=== PATIENT | male | born 1945 | race Caucasian/White ===

== ENCOUNTER 2017-01-12 00:45 | Inpatient (IN) | payer OTHER, MEDICAID ==
[~2017-01-12] VITALS: Ht 165.1 cm; Wt 83.0 kg
[2017-01-12] VITALS (7 sets, daily range): BP systolic 120–155
[2017-01-12] MEDS ORDERED: HYDROmorphone 1 MG INJ. 1 MG/ML AMPUL IVP ONE (01:30)
[2017-01-12] MEDS ORDERED: NACL 0.9% 1,000 ML IV ONE ×2 (01:30→09:45)
[2017-01-12] MEDS ORDERED: ONDANSETRON HCL 4 MG/2 ML VIAL IVP ONE ×2 (01:45→02:15)
[2017-01-12 01:53] LABS: BASOPHILS # (AUTO) 0.1 K/uL (0.0-0.2); BASOPHILS % (AUTO) 0.6 % (0.0-2.0); EOSINOPHILS # (AUTO) 0.1 K/uL (0.0-0.4); EOSINOPHILS % (AUTO) 0.9 % (0.0-4.0); HEMOGLOBIN 13.6 g/dL (14.0-18.0); LYMPHOCYTES # (AUTO) 1.6 K/uL (1.0-5.5); LYMPHOCYTES % (AUTO) 13.3 % (20.5-51.5); MEAN CORPUSCULAR HEMOGLOBIN 31 pg (27-31); MEAN CORPUSCULAR HGB CONC 35 % (32-36); MEAN CORPUSCULAR VOLUME 88 fL (79.0-98.0); MONOCYTES # (AUTO) 0.8 K/uL (0.0-1.0); MONOCYTES % (AUTO) 6.3 % (1.7-9.3); NEUTROPHILS # (AUTO) 9.5 K/uL (1.8-7.7); NEUTROPHILS % (AUTO) 78.9 % (40.0-70.0); PLATELET COUNT (AUTO) 196 K/uL (130-430); RED BLOOD CELL COUNT(AUTO) 4.41 MIL/uL (4.2-6.2); RED CELL DISTRIBUTION WIDTH 11.9 % (9.0-15.0); WHITE BLOOD COUNT (AUTO) 12.1 K/uL (4.8-10.8)
[2017-01-12] MEDS ORDERED: ONDANSETRON HCL 4 MG/2 ML VIAL ONE (02:03)
[2017-01-12 02:09] LABS: ANION GAP 10 (5-15); CALCIUM 9.2 mg/dL (8.4-11.0); CHLORIDE 104 mmol/L (98-107); GLUCOSE 138 mg/dL (70-99); POTASSIUM 3.6 mmol/L (3.5-5.1); SODIUM SERUM 139 mmol/L (136-145); UREA NITROGEN, BLOOD 19 mg/dL (8-21)
[2017-01-12 02:14] LABS: ALANINE AMINOTRANSFERASE 45 U/L (12-78); ALBUMIN 4.1 g/dL (3.4-4.8); ASPARTATE AMINOTRANSFERASE 31 U/L (10-37); LACTATE DEHYDROGENASE 211 U/L (85-227); TOTAL BILIRUBIN 0.5 mg/dL (0.0-1.0)
[2017-01-12] MEDS ORDERED: PRAV40TA PO (02:48)
[2017-01-12] MEDS ORDERED: NOR10 PO (02:48)
[2017-01-12] MEDS ORDERED: HYDR25TA4 PO (02:48)
[2017-01-12] MEDS ORDERED: FENO48TA2 PO (02:48)
[2017-01-12 03:25] LABS: LIPASE 12443 U/L (73-393)
[2017-01-12] MEDS ORDERED: FLU VACC QS 2017-18(36MOS+)/PF 0.5 ML/SYR SYRINGE I.M. PRN (03:45)
[2017-01-12] MEDS: NACL 0.9% 1,000 ML IV SCH ×3 (04:26→23:52)
[2017-01-12] MEDS ORDERED: ONDANSETRON HCL 4 MG/2 ML VIAL IVP PRN (05:30)
[2017-01-12 07:00] LABS: BILIRUBIN,URINE NEGATIVE (NEGATIVE); BLOOD, URINE NEGATIVE (NEGATIVE); CLARITY/URINE SL HAZY (CLEAR); COLOR,URINE YELLOW (YELLOW); GLUCOSE,URINE NEGATIVE (NEGATIVE); KETONES,URINE NEGATIVE (NEGATIVE); LEUKOCYTE ESTERASE ,URINE NEGATIVE (NEGATIVE); NITRITE, URINE NEGATIVE (NEGATIVE); PROTEIN URINE NEGATIVE (NEGATIVE); UROBILINOGEN,URINE 0.2 (0.2-1.0)
[2017-01-12] MEDS: HYDROmorphone 1 MG INJ. 1 MG/ML AMPUL IVP PRN ×2 (07:52→15:22)
[2017-01-12] MEDS ORDERED: HYDROmorphone 1 MG INJ. 1 MG/ML AMPUL IVP PRN (09:45)
[2017-01-12] MEDS ORDERED: cloNIDine HCL 0.1 MG TABLET PO PRN (09:45)
[2017-01-12] MEDS ORDERED: HYDROmorphone 2 MG/ML VIAL IVP PRN (09:45)
[2017-01-12] MEDS ORDERED: ACETAMINOPHEN 325 MG TABLET PO PRN (09:45)
[2017-01-13 00:02] VITALS: BP_SYST 134
[2017-01-13 04:38] VITALS: BP_SYST 132
[2017-01-13] MEDS: NACL 0.9% 1,000 ML IV SCH ×4 (06:16→16:45)
[2017-01-13 07:16] LABS: BASOPHILS % (AUTO) 0.2 % (0.0-2.0); EOSINOPHILS % (AUTO) 0.4 % (0.0-4.0); HEMATOCRIT 35.2 % (36-54); HEMOGLOBIN 12.3 g/dL (14.0-18.0); LYMPHOCYTES # (AUTO) 1.4 K/uL (1.0-5.5); LYMPHOCYTES % (AUTO) 13.8 % (20.5-51.5); MEAN CORPUSCULAR HEMOGLOBIN 31 pg (27-31); MEAN CORPUSCULAR HGB CONC 35 % (32-36); MEAN CORPUSCULAR VOLUME 89 fL (79.0-98.0); MONOCYTES # (AUTO) 0.8 K/uL (0.0-1.0); MONOCYTES % (AUTO) 7.7 % (1.7-9.3); NEUTROPHILS # (AUTO) 8.1 K/uL (1.8-7.7); NEUTROPHILS % (AUTO) 77.9 % (40.0-70.0); PLATELET COUNT (AUTO) 169 K/uL (130-430); RED BLOOD CELL COUNT(AUTO) 3.94 MIL/uL (4.2-6.2); RED CELL DISTRIBUTION WIDTH 12.1 % (9.0-15.0); WHITE BLOOD COUNT (AUTO) 10.3 K/uL (4.8-10.8)
[2017-01-13 07:40] LABS: ALANINE AMINOTRANSFERASE 30 U/L (12-78); ALBUMIN 3.2 g/dL (3.4-4.8); ANION GAP 8 (5-15); ASPARTATE AMINOTRANSFERASE 18 U/L (10-37); CALCIUM 8.4 mg/dL (8.4-11.0); CHLORIDE 106 mmol/L (98-107); CREATININE 0.84 mg/dL (0.55-1.30); GLUCOSE 88 mg/dL (70-99); LIPASE 1418 U/L (73-393); POTASSIUM 3.1 mmol/L (3.5-5.1); SODIUM SERUM 139 mmol/L (136-145); TOTAL BILIRUBIN 0.8 mg/dL (0.0-1.0); UREA NITROGEN, BLOOD 9 mg/dL (8-21)
[2017-01-13 08:13] VITALS: BP_SYST 142
[2017-01-13] MEDS ORDERED: POTASSIUM CHLORIDE 40 MEQ in NS 250 ML IV SCH (08:48)
[2017-01-13] MEDS ORDERED: NACL 0.9% 1,000 ML IV ONE (09:00)
[2017-01-13 09:06] LABS: CHOLESTEROL 115 mg/dL (<200); HDL CHOLESTEROL 50 mg/dL (>45); LDL CHOLESTEROL 62 mg/dL (<100); TRIGLYCERIDES 74 mg/dL (30-150)
[2017-01-13] MEDS: amLODIPine BESYLATE 10 MG TABLET PO SCH (09:26)
[2017-01-13 11:47] VITALS: BP_SYST 144
[2017-01-13 17:07] VITALS: BP_SYST 137
[2017-01-13 20:10] VITALS: BP_SYST 155
[2017-01-13] MEDS: HYDROmorphone 1 MG INJ. 1 MG/ML AMPUL IVP PRN (21:04)
[2017-01-14] MEDS: NACL 0.9% 1,000 ML IV SCH ×5 (00:33→19:13)
[2017-01-14 00:58] VITALS: BP_SYST 128
[2017-01-14 04:57] VITALS: BP_SYST 135
[2017-01-14 07:24] LABS: ALANINE AMINOTRANSFERASE 33 U/L (12-78); ALBUMIN 2.9 g/dL (3.4-4.8); AMYLASE 95 U/L (0-100); ANION GAP 8 (5-15); ASPARTATE AMINOTRANSFERASE 24 U/L (10-37); CALCIUM 8.6 mg/dL (8.4-11.0); CHLORIDE 109 mmol/L (98-107); CREATININE 0.74 mg/dL (0.55-1.30); GLUCOSE 105 mg/dL (70-99); LIPASE 283 U/L (73-393); POTASSIUM 3.2 mmol/L (3.5-5.1); SODIUM SERUM 140 mmol/L (136-145); TOTAL BILIRUBIN 1.3 mg/dL (0.0-1.0); UREA NITROGEN, BLOOD 6 mg/dL (8-21)
[2017-01-14 07:26] LABS: BASOPHILS % (AUTO) 0.2 % (0.0-2.0); EOSINOPHILS # (AUTO) 0.1 K/uL (0.0-0.4); EOSINOPHILS % (AUTO) 1.5 % (0.0-4.0); HEMATOCRIT 33.2 % (36-54); HEMOGLOBIN 11.5 g/dL (14.0-18.0); LYMPHOCYTES # (AUTO) 1.3 K/uL (1.0-5.5); LYMPHOCYTES % (AUTO) 15.4 % (20.5-51.5); MEAN CORPUSCULAR HEMOGLOBIN 31 pg (27-31); MEAN CORPUSCULAR HGB CONC 35 % (32-36); MEAN CORPUSCULAR VOLUME 90 fL (79.0-98.0); MONOCYTES # (AUTO) 0.7 K/uL (0.0-1.0); MONOCYTES % (AUTO) 8.7 % (1.7-9.3); NEUTROPHILS # (AUTO) 6.4 K/uL (1.8-7.7); NEUTROPHILS % (AUTO) 74.2 % (40.0-70.0); PLATELET COUNT (AUTO) 154 K/uL (130-430); RED BLOOD CELL COUNT(AUTO) 3.71 MIL/uL (4.2-6.2); RED CELL DISTRIBUTION WIDTH 11.7 % (9.0-15.0); WHITE BLOOD COUNT (AUTO) 8.5 K/uL (4.8-10.8)
[2017-01-14 08:00] VITALS: BP_SYST 141
[2017-01-14] MEDS: POTASSIUM CHLORIDE 20 MEQ TAB.PRT.SR PO SCH ×2 (09:05→14:21)
[2017-01-14] MEDS: amLODIPine BESYLATE 10 MG TABLET PO SCH (09:06)
[2017-01-14 12:27] VITALS: BP_SYST 120
[2017-01-14 17:00] VITALS: BP_SYST 116
[2017-01-14 20:00] VITALS: BP_SYST 148
[2017-01-15] MEDS: NACL 0.9% 1,000 ML IV SCH ×2 (00:15→08:22)
[2017-01-15 00:24] VITALS: BP_SYST 154
[2017-01-15] MEDS: HYDROmorphone 1 MG INJ. 1 MG/ML AMPUL IVP PRN (02:37)
[2017-01-15 04:05] VITALS: BP_SYST 109
[2017-01-15 08:09] VITALS: BP_SYST 140
[2017-01-15] MEDS: amLODIPine BESYLATE 10 MG TABLET PO SCH (08:16)
[2017-01-15 10:39] LABS: ALBUMIN 3.3 g/dL (3.4-4.8); CREATININE 0.8 mg/dL (0.55-1.30); POTASSIUM 3.5 mmol/L (3.5-5.1); TOTAL BILIRUBIN 1.3 mg/dL (0.0-1.0)
[2017-01-15 12:13] VITALS: BP_SYST 125
[2017-01-15 15:04] VITALS: BP_SYST 125
[2017-01-15 15:26] VITALS: BP_SYST 126
== END 2017-01-15 15:15 | disposition home or self-care (01) | DRG 439 ==
LOC: SED 00:45 → STU 03:01 → SMU 11:15
PROVIDERS: ADMIT Internal Medicine Hospice and Palliative Medicine; ATTEND Internal Medicine Hospice and Palliative Medicine
DX: K85.90 Acute pancreatitis without necrosis or infection, unspecified (principal); K86.2 Cyst of pancreas; I10 Essential (primary) hypertension; K59.00 Constipation, unspecified; E78.5 Hyperlipidemia, unspecified; Z79.899 Other long term (current) drug therapy
CPT/HCPCS: 36415; 71010; 74181; 76700-TC; 80053; 80061; 81003; 82150-TC; 83615-TC; 83690-TC; 83880; 84484; 85025; 93005; 96361; 96374; 96375; 99285; J1170; J2405; J3480; J7030; J7050; Q2037

== ENCOUNTER 2018-04-10 08:00 | Inpatient (IN) | payer OTHER, MEDICAID ==
[~2018-04-10] VITALS: Ht 165.1 cm; Wt 78.5 kg
[~2018-04-10 08:00] MED LIST: NOR10 PO; PRAV40TA PO; TRI48 PO
[2018-04-10 08:05] VITALS: BP_SYST 130
[2018-04-10] MEDS ORDERED: NACL 0.9% 1,000 ML IV ONE (08:10)
[2018-04-10] MEDS ORDERED: MAG HYDROX/AL HYDROX/SIMETH 30 ML, BELLADONNA ALKALOIDS/PHENOBARB 10 ML, LIDOCAINE VISC... PO ONE ×3 (08:15)
[2018-04-10] MEDS ORDERED: ONDANSETRON HCL 4 MG/2 ML VIAL IVP ONE (08:15)
[2018-04-10 08:37] LABS: BASOPHILS % (AUTO) 0.4 % (0.0-2.0); EOSINOPHILS # (AUTO) 0.1 K/uL (0.0-0.4); HEMATOCRIT 45.5 % (36-54); HEMOGLOBIN 15.9 g/dL (14.0-18.0); LYMPHOCYTES # (AUTO) 1.8 K/uL (1.0-5.5); LYMPHOCYTES % (AUTO) 17.1 % (20.5-51.5); MEAN CORPUSCULAR HEMOGLOBIN 31 pg (27-31); MEAN CORPUSCULAR HGB CONC 35 % (32-36); MEAN CORPUSCULAR VOLUME 88 fL (79.0-98.0); MONOCYTES # (AUTO) 0.7 K/uL (0.0-1.0); MONOCYTES % (AUTO) 6.5 % (1.7-9.3); NEUTROPHILS # (AUTO) 7.7 K/uL (1.8-7.7); PLATELET COUNT (AUTO) 214 K/uL (130-430); RED BLOOD CELL COUNT(AUTO) 5.16 MIL/uL (4.2-6.2); WHITE BLOOD COUNT (AUTO) 10.3 K/uL (4.8-10.8)
[2018-04-10 08:45] LABS: BILIRUBIN,URINE 2+ (NEGATIVE); BLOOD, URINE NEGATIVE (NEGATIVE); CLARITY/URINE HAZY (CLEAR); COLOR,URINE AMBER (YELLOW); GLUCOSE,URINE NEGATIVE (NEGATIVE); KETONES,URINE 1+ (NEGATIVE); LEUKOCYTE ESTERASE ,URINE NEGATIVE (NEGATIVE); NITRITE, URINE NEGATIVE (NEGATIVE); PROTEIN URINE 1+ (NEGATIVE); UROBILINOGEN,URINE 0.2 (0.2-1.0)
[2018-04-10 08:46] LABS: ANION GAP 8 (5-15); CALCIUM 9.1 mg/dL (8.4-11.0); CHLORIDE 100 mmol/L (98-107); CREATININE 0.97 mg/dL (0.55-1.30); GLUCOSE 100 mg/dL (70-99); POTASSIUM 3.5 mmol/L (3.5-5.1); SODIUM SERUM 136 mmol/L (136-145); UREA NITROGEN, BLOOD 10 mg/dL (8-21)
[2018-04-10 08:52] LABS: INR 0.9 (0.80-1.20); PROTHROMBIN TIME 9.7 SECS (9.5-12.5)
[2018-04-10 08:53] LABS: ALANINE AMINOTRANSFERASE 37 U/L (12-78); AMYLASE 683 U/L (0-100); ASPARTATE AMINOTRANSFERASE 18 U/L (10-37); TOTAL BILIRUBIN 1.4 mg/dL (0.0-1.0)
[2018-04-10 08:55] LABS: RBC,URINE 0-3 /HPF (0-3); WBC,URINE 0-3 /HPF (0-3)
[2018-04-10 08:56] LABS: BACTERIA,URINE FEW /HPF (None Seen); MUCUS,URINE 2+ /LPF (None Seen)
[2018-04-10 09:39] LABS: LIPASE 3325 U/L (73-393)
[2018-04-10] MEDS ORDERED: MORPHINE 4 MG/ML INJ. SYRINGE IVP ONE (09:45)
[2018-04-10 10:43] VITALS: BP_SYST 115
[2018-04-10] MEDS ORDERED: ONDANSETRON HCL 4 MG/2 ML VIAL IVP PRN (11:30)
[2018-04-10] MEDS ORDERED: MORPHINE 4 MG/ML INJ. SYRINGE IVP PRN (11:30)
[2018-04-10] MEDS: D5NS 1,000 ML IV SCH ×2 (12:38→18:54)
[2018-04-10 12:45] VITALS: BP_SYST 115
[2018-04-10 16:14] VITALS: BP_SYST 120
[2018-04-10] MEDS: MORPHINE 4 MG/ML INJ. SYRINGE IVP PRN (19:09)
[2018-04-10 19:30] VITALS: BP_SYST 123
[2018-04-11 00:24] VITALS: BP_SYST 129
[2018-04-11] MEDS: D5NS 1,000 ML IV SCH ×4 (01:23→20:52)
[2018-04-11 07:55] LABS: BASOPHILS # (AUTO) 0.1 K/uL (0.0-0.2); BASOPHILS % (AUTO) 0.9 % (0.0-2.0); EOSINOPHILS # (AUTO) 0.1 K/uL (0.0-0.4); EOSINOPHILS % (AUTO) 1.4 % (0.0-4.0); HEMATOCRIT 39.5 % (36-54); HEMOGLOBIN 13.1 g/dL (14.0-18.0); LYMPHOCYTES # (AUTO) 1.4 K/uL (1.0-5.5); LYMPHOCYTES % (AUTO) 20.4 % (20.5-51.5); MEAN CORPUSCULAR HEMOGLOBIN 30 pg (27-31); MEAN CORPUSCULAR HGB CONC 33 % (32-36); MEAN CORPUSCULAR VOLUME 89 fL (79.0-98.0); MONOCYTES # (AUTO) 0.7 K/uL (0.0-1.0); MONOCYTES % (AUTO) 9.2 % (1.7-9.3); NEUTROPHILS # (AUTO) 4.8 K/uL (1.8-7.7); NEUTROPHILS % (AUTO) 68.1 % (40.0-70.0); PLATELET COUNT (AUTO) 169 K/uL (130-430); RED BLOOD CELL COUNT(AUTO) 4.43 MIL/uL (4.2-6.2); RED CELL DISTRIBUTION WIDTH 11.9 % (9.0-15.0); WHITE BLOOD COUNT (AUTO) 7.1 K/uL (4.8-10.8)
[2018-04-11 08:00] VITALS: BP_SYST 126
[2018-04-11 08:18] LABS: ANION GAP 6 (5-15); CALCIUM 8.2 mg/dL (8.4-11.0); CHLORIDE 104 mmol/L (98-107); CREATININE 0.89 mg/dL (0.55-1.30); GLUCOSE 119 mg/dL (70-99); POTASSIUM 4.1 mmol/L (3.5-5.1); SODIUM SERUM 138 mmol/L (136-145); UREA NITROGEN, BLOOD 6 mg/dL (8-21)
[2018-04-11 08:22] LABS: ALANINE AMINOTRANSFERASE 24 U/L (12-78); ALBUMIN 3.1 g/dL (3.4-4.8); ASPARTATE AMINOTRANSFERASE 12 U/L (10-37); LIPASE 553 U/L (73-393); TOTAL BILIRUBIN 0.9 mg/dL (0.0-1.0); TRIGLYCERIDES 146 mg/dL (30-150)
[2018-04-11] MEDS ORDERED: PRAVASTATIN SODIUM 20 MG TABLET (PRAVACHOL) PO SCH (09:00)
[2018-04-11] MEDS: ATORVASTATIN 10 MG TABLET PO SCH (09:29)
[2018-04-11] MEDS: amLODIPine BESYLATE 10 MG TABLET PO SCH (09:30)
[2018-04-11] MEDS: FENOFIBRATE NANOCRYSTALLIZED 48 MG TABLET (TRICOR) PO SCH (09:31)
[2018-04-11 12:16] VITALS: BP_SYST 145
[2018-04-11 16:04] VITALS: BP_SYST 132
[2018-04-11 20:45] VITALS: BP_SYST 119
[2018-04-11] MEDS: MORPHINE 4 MG/ML INJ. SYRINGE IVP PRN (20:57)
[2018-04-11 23:26] VITALS: BP_SYST 122
[2018-04-12] MEDS: D5NS 1,000 ML IV SCH ×3 (04:08→18:07)
[2018-04-12 08:12] VITALS: BP_SYST 139
[2018-04-12] MEDS: ATORVASTATIN 10 MG TABLET PO SCH (09:18)
[2018-04-12] MEDS: FENOFIBRATE NANOCRYSTALLIZED 48 MG TABLET (TRICOR) PO SCH (09:18)
[2018-04-12] MEDS: amLODIPine BESYLATE 10 MG TABLET PO SCH (09:19)
[2018-04-12 12:00] VITALS: BP_SYST 137
[2018-04-12] MEDS ORDERED: MILK OF MAGNESIA 30 ML UDC PO ONE (13:45)
[2018-04-12 16:00] VITALS: BP_SYST 131
[2018-04-12 20:00] VITALS: BP_SYST 134
[2018-04-12 23:49] VITALS: BP_SYST 137
[2018-04-13] MEDS: D5NS 1,000 ML IV SCH ×2 (02:15→06:39)
[2018-04-13 08:00] VITALS: BP_SYST 138
[2018-04-13 08:19] LABS: BASOPHILS % (AUTO) 0.5 % (0.0-2.0); EOSINOPHILS # (AUTO) 0.1 K/uL (0.0-0.4); EOSINOPHILS % (AUTO) 2.4 % (0.0-4.0); HEMATOCRIT 45.4 % (36-54); HEMOGLOBIN 15.3 g/dL (14.0-18.0); LYMPHOCYTES # (AUTO) 0.8 K/uL (1.0-5.5); LYMPHOCYTES % (AUTO) 16.9 % (20.5-51.5); MEAN CORPUSCULAR HEMOGLOBIN 30 pg (27-31); MEAN CORPUSCULAR HGB CONC 34 % (32-36); MEAN CORPUSCULAR VOLUME 89 fL (79.0-98.0); MONOCYTES # (AUTO) 0.5 K/uL (0.0-1.0); MONOCYTES % (AUTO) 9.1 % (1.7-9.3); NEUTROPHILS # (AUTO) 3.6 K/uL (1.8-7.7); NEUTROPHILS % (AUTO) 71.1 % (40.0-70.0); PLATELET COUNT (AUTO) 189 K/uL (130-430); RED BLOOD CELL COUNT(AUTO) 5.12 MIL/uL (4.2-6.2); RED CELL DISTRIBUTION WIDTH 12.1 % (9.0-15.0)
[2018-04-13 08:36] LABS: ALBUMIN 3.6 g/dL (3.4-4.8); ASPARTATE AMINOTRANSFERASE 31 U/L (10-37); CALCIUM 8.9 mg/dL (8.4-11.0); CHLORIDE 105 mmol/L (98-107); CREATININE 0.85 mg/dL (0.55-1.30); GLUCOSE 173 mg/dL (70-99); LIPASE 258 U/L (73-393); POTASSIUM 4.1 mmol/L (3.5-5.1); SODIUM SERUM 140 mmol/L (136-145); UREA NITROGEN, BLOOD 4 mg/dL (8-21)
[2018-04-13 09:02] LABS: ANION GAP 9 (5-15); TOTAL BILIRUBIN 1.1 mg/dL (0.0-1.0)
[2018-04-13 09:22] LABS: ALANINE AMINOTRANSFERASE 50 U/L (12-78)
[2018-04-13] MEDS: amLODIPine BESYLATE 10 MG TABLET PO SCH (09:58)
[2018-04-13] MEDS: ATORVASTATIN 10 MG TABLET PO SCH (09:59)
[2018-04-13] MEDS: FENOFIBRATE NANOCRYSTALLIZED 48 MG TABLET (TRICOR) PO SCH (09:59)
[2018-04-13 11:30] VITALS: BP_SYST 117
[2018-04-13 12:54] VITALS: BP_SYST 138
== END 2018-04-13 13:40 | disposition home or self-care (01) | DRG 439 ==
LOC: SED 08:00 → SMU 09:56
PROVIDERS: ADMIT Internal Medicine Hospice and Palliative Medicine; ATTEND Internal Medicine Hospice and Palliative Medicine
DX: K85.90 Acute pancreatitis without necrosis or infection, unspecified (principal); F11.20 Opioid dependence, uncomplicated; E78.5 Hyperlipidemia, unspecified; I10 Essential (primary) hypertension; K76.0 Fatty (change of) liver, not elsewhere classified; E78.00 Pure hypercholesterolemia, unspecified; G89.29 Other chronic pain; M19.90 Unspecified osteoarthritis, unspecified site; K59.00 Constipation, unspecified; Z82.49 Family history of ischemic heart disease and other diseases of the circulatory system; Z91.018 Allergy to other foods
CPT/HCPCS: 36415; 71045; 76700-TC; 80053; 81000-TC; 82150-TC; 82550-TC; 83690-TC; 84478-TC; 84484; 85025; 85610-TC; 85730-TC; 90656; 93005; 96361; 96374; 96375; 99285; J2001; J2270; J2405; J7042

== ENCOUNTER 2021-10-02 18:33 | Emergency (ER) | payer OTHER, MEDICAID ==
[~2021-10-02] VITALS: Ht 172.7 cm; Wt 72.6 kg
[2021-10-02 18:33] VITALS: BP_SYST 146
[2021-10-02] MEDS ORDERED: KETOROLAC TROMETHAMINE 60 MG/2 ML VIAL IM ONE (19:30)
[2021-10-02 20:24] LABS: BASOPHILS % (AUTO) 0.3 % (0.0-2.0); EOSINOPHILS % (AUTO) 0.1 % (0.0-4.0); HEMATOCRIT 42.5 % (36-54); HEMOGLOBIN 14.9 g/dL (14.0-18.0); LYMPHOCYTES # (AUTO) 0.9 K/uL (1.0-5.5); LYMPHOCYTES % (AUTO) 7.4 % (20.5-51.5); MEAN CORPUSCULAR HEMOGLOBIN 30 pg (27-31); MEAN CORPUSCULAR HGB CONC 35 % (32-36); MEAN CORPUSCULAR VOLUME 84 fL (79.0-98.0); MONOCYTES # (AUTO) 0.6 K/uL (0.0-1.0); MONOCYTES % (AUTO) 5.2 % (1.7-9.3); NEUTROPHILS # (AUTO) 10.8 K/uL (1.8-7.7); PLATELET COUNT (AUTO) 176 K/uL (130-430); RED BLOOD CELL COUNT(AUTO) 5.03 MIL/uL (4.2-6.2); RED CELL DISTRIBUTION WIDTH 12.7 % (9.0-15.0); WHITE BLOOD COUNT (AUTO) 12.4 K/uL (4.8-10.8)
[2021-10-02 20:29] LABS: ANION GAP 9 (5-15); CHLORIDE 95 mmol/L (98-107); CREATININE 0.89 mg/dL (0.55-1.30); GLUCOSE 271 mg/dL (70-99); SODIUM SERUM 130 mmol/L (136-145); UREA NITROGEN, BLOOD 8 mg/dL (8-21)
[2021-10-02 20:33] LABS: ALANINE AMINOTRANSFERASE 22 U/L (12-78); ASPARTATE AMINOTRANSFERASE 16 U/L (10-37); LIPASE 289 U/L (73-393); TOTAL BILIRUBIN 1.3 mg/dL (0.0-1.0)
[2021-10-02] MEDS ORDERED: SUCR1TAB78 PO (20:49)
[2021-10-02] MEDS ORDERED: TRAM50TA PO (20:49)
[2021-10-02 21:08] VITALS: BP_SYST 132
== END 2021-10-02 21:05 | disposition home or self-care (01) ==
LOC: SED 18:33
DX: R10.13 Epigastric pain (principal); I10 Essential (primary) hypertension; Z91.018 Allergy to other foods
CPT/HCPCS: 36415; 74176; 76376; 80053; 83690; 85025; 96372; 99284; J1885